=== PATIENT | male | born 1960 | race Caucasian/White ===

== ENCOUNTER 2022-07-09 20:54 | Emergency (ER) | payer MEDICAID ==
[~2022-07-09] VITALS: Ht 167.6 cm; Wt 98.0 kg
[2022-07-09 20:58] VITALS: BP 190/96
[2022-07-10] MEDS ORDERED: LISINOPRIL 20MG TABLET PO ONE
[2022-07-10] MEDS ORDERED: ATORVASTATIN CALCIUM 40MG TABLET PO SCH
[2022-07-10] MEDS ORDERED: HYDROCHLOROTHIAZIDE 25MG TABLET PO ONE
[2022-07-10] MEDS ORDERED: ACETAMINOPHEN 325MG TABLET PO ONE
[2022-07-10] MEDS ORDERED: ATOR40TA70 MT (00:04)
[2022-07-10] MEDS ORDERED: ACET-2708 MT (00:04)
[2022-07-10] MEDS ORDERED: HYDR25TA MT (00:04)
[2022-07-10] MEDS ORDERED: LISI20TA31 MT (00:04)
== END 2022-07-10 00:44 | disposition home or self-care (01) ==
LOC: ER 21:17
DX: I10 Essential (primary) hypertension (principal); R51.9 Headache, unspecified; Z76.0 Encounter for issue of repeat prescription
CPT/HCPCS: 99284; Z7610